=== PATIENT | male | born 1990 | race Caucasian/White ===

== ENCOUNTER 2018-01-05 23:48 | Emergency (ER) | payer SELFPAY ==
[2018-01-06 00:01] VITALS: BP 121/78; PULSE 68; TEMP 98.5; BMI 29.7
--- NOTE | 2018-01-06 00:19 | PDOC ---
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 Pt is accompanied by his cousin and conversation was translated by metal door assembler. Pt states the rash started around 8am this morning, shortly after he went to work. The hives started on his legs, and then spread to his trunk, arms, and neck with lip swelling. 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 He is unsure what is causing the reactions, and has not taken any benadryl at home, as the rash usually resolves on its own. He denies any fevers/chills, headache, vision changes, chest pain, palpitations, SOB, nausea/vomiting, abdominal pain, diarrhea/constipation, or joint swelling. Pt denies any cigarette, alcohol, or drug use. Pt denies any recent travel or sick contacts. 01/06/18 01:06 Past History - Past Medical History Allergies/Adverse Reactions: Allergies Allergy/AdvReac Type Severity Reaction Status Date / Time No Known Allergies Allergy Verified 01/05/18 23:58 Home Medications: Ambulatory Orders NK [No Known Home Medication] 01/05/18 COPD: No Other medical history: Pt denies - Suicide/Smoking/Psychosocial Hx Smoking History: Never smoked Have you smoked in the past 12 months: No Information on smoking cessation initiated: No Hx Alcohol Use: Yes (Weekends) Drug/Substance Use Hx: No Substance Use Type: Alcohol *Physical Exam - Vital Signs Last Vital Signs Temp Pulse Resp BP Pulse Ox 98.5 F 68 18 121/78 99 01/05/18 23:58 01/05/18 23:58 01/05/18 23:58 01/05/18 23:58 01/05/18 23:58 Medical Decision Making - Medical Decision Making Pt was seen at bedside, also will be seen by attending Dr. Jesus. Pt presenting with allergic reaction since this AM. Pt is accompanied by his cousin and conversatoin was translated by metal door assembler. Pt states it started around 8am this morning, shortly after he went to work. The hives started on his legs, and then spread to his trunk, arms, and neck with lip swelling. 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 He is unsure what is causing the reactions, and has not taken any benadryl at home, as the rash usually resolves on its own. He denies any fevers/chills, headache, vision changes, chest pain, palpitations, SOB, nausea/vomiting, abdominal pain, diarrhea/constipation, or joint swelling. PE showed pt in NAD, vitals stable. Raised urticaria over b/l LE on shins and posterior fossa, and b/l lower arms/wrists. Pt has slightly edematous lips, no pharyngeal erythema or stridor. Lung and heart sounds clear. Appears to be urticaria from allergic reaction with pruritis. Not anaphylactic reaction as only skin system affected (no wheezing/SOB, nausea/vomiting/diarrhea , palpitations). Provided 1 L NS, 25 mg IV benadryl, and 20 mg PO prednisone for improvement of urticaria and pruritus. Will continue to reassess pt and monitor for symptomatic improvement. 01/06/18 00:43 01/06/18 00:52 *DC/Admit/Observation/Transfer Diagnosis at time of Disposition: Urticaria Allergic reaction Qualifiers: Encounter type: initial encounter Qualified Code(s): T78.40XA - Allergy, unspecified, initial encounter - Discharge Dispostion Disposition: HOME Condition at time of disposition: Improved Decision to Admit order: No - Referrals Referrals: Merari Car MD [Staff Physician] - Shahid Chung MD [Non Staff, Medical] - - Patient Instructions Printed Discharge Instructions: DI for General Allergic Reactions Additional Instructions: You were seen in the ER today for an allergic reaction. We have referred you to our primary care clinic, and would like you to follow-up within 1-2 days to discuss your visit and make sure your symptoms have improved. We have also referred you to an grocery buyer doctor. Please return to the ER if you have any worsening rash, development of fevers or chills, shortness of breath or trouble swallowing, loss of consciousness, inability to tolerate food or fluids, or any other concerns. Print Language: AMHARIC - Post Discharge Activity
[2018-01-06] MEDS ORDERED: SODIUM CHLORIDE 1,000 ML IV STA (00:33)
--- NOTE | 2018-01-06 00:46 | PDOC ---
Attending Attestation - Resident Resident Name: Dinora Gordon - ED Attending Attestation I have performed the following: I have examined & evaluated the patient, The case was reviewed & discussed with the resident, I agree w/resident's findings & plan, Exceptions are as noted - HPI HPI: 01/06/18 00:45 27y M no pmhx presents with itching. Pt notes he had some itching in his R leg 3 days ago, but since then his itching has gotten worse and is eveyrwhre including his torso, his arms, his neck. No new scents, lotions, detergents, soaps, shampoos, new clothing. 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 denies any sob, cough, abd anne-marie, n/v, lightheadenes , changes in his voice, wheezing. no known allergies - Physicial Exam PE: 01/06/18 00:50 GENERAL: The patient is awake, alert, and fully oriented, Nontoxic - in no acute distress. HEAD: Normocephalic, atraumatic. EYES: extraocular movements intact, sclera anicteric, conjunctiva clear. ENT: Normal voice, Moist mucous membranes, airway widely patent, no stridor NECK: Normal range of motion, supple LUNGS: Breath sounds equal, clear to auscultation bilaterally. No wheezes, no rhonchi, no rales. HEART: Regular rate and rhythm, normal S1 and S2 without murmur, rub or gallop. ABDOMEN: Soft, nontender, normoactive bowel sounds. No guarding, no rebound. . No CVA tenderness EXTREMITIES: Normal range of motion, no edema. No clubbing or cyanosis. No cords, erythema, or tenderness. NEUROLOGICAL: No facial assymetry, Normal speech, PSYCH: Normal mood, normal affect. SKIN: urticaria prominent rate in the R popliteal fossa, mild urticaria in b/l UE - Medical Decision Making 01/06/18 00:51 Urticaria of unknown etiology x 3 days no other systems involved no known triggers will give benadryl, sterioids dilia lreer to allergy for further evaluation 01/06/18 01:59 pt feelin gimproved will dc with allergy fu return precautions were discussed I discussed the physical exam findings, ancillary test results and final diagnoses with the patient. I answered all of the patient's questions. The patient was satisfied with the care received and felt comfortable with the discharge plan and treatment plan. The patient will call their primary care physician within 24 hours to arrange follow-up and will return to the Emergency Department with any new, persistent or worsening symptoms.
[2018-01-06] MEDS ORDERED: predniSONE 20 MG TABLET (UD) PO ONE (00:50)
[2018-01-06] MEDS ORDERED: predniSONE 20 MG TABLET (UD) ONE (01:21)
== END 2018-01-06 01:59 | disposition home or self-care (01) ==
LOC: JER 23:48
PROC: 3E033GC Introduction of Other Therapeutic Substance into Peripheral Vein, Percutaneous Approach (ICD-10-PCS; principal; 2018-01-05)
DX: T78.40XA Allergy, unspecified, initial encounter (principal); L50.0 Allergic urticaria
CPT/HCPCS: 99282-25; J7030